=== PATIENT | female | born 1970 | race Caucasian/White ===

== ENCOUNTER 2024-05-14 15:41 | Outpatient (AMB) | payer OTHER, SELFPAY ==
--- NOTE | 2024-05-14 15:51 | MHC.PC.OV ---
Vital Signs 05/14/24 16:00 Height 5 ft 7 in Weight 201 lb BMI 31.5 BP 110/66 Blood Pressure Location Lt brachial Position Sitting Respiration 16 Pulse 81 Pulse Source Pulse Oximeter Temp 98.3 F Temp Source Oral Pulse Oximetry (%) 100 Oxygen Delivery Method Room Air Intake Visit Reasons: EstablishCareNP (get ins) Intake Note: [facility] Is last menstrual period known: No Post menopausal: Yes Patient : No Allergies No Known Allergies Allergy (Verified 05/14/24 15:51) Tobacco use date assessed: 05/14/24 Dental Screening Dental Screen Date: 05/14/24 Did you have a dental visit in the last 12 months?: Yes Did you have a dental problem in the last 6 months where you did not have access to dental care?: Yes HPI HPI Comments History of Present Illness Details The patient is a 53-year-old female presenting to [facility]. She transferred from [facility]. Records have not been transferred yet. She reports experiencing anxiety that can affect her sleep and appetite. She has a lot of healthcare anxiety. She says this has been going on for many years. Stress seems to exacerbate her anxiety, and she finds crafting and playing games helpful. She inquires about medication options for her anxiety but expresses a preference to start with therapy. She tried Zoloft in the past, but she has concerns about weight gain with this medication. She has concerns about her ears. She has had wax buildup in the past. She has intermittent lightheadedness that started late March after using a drying aid in both ears. She does not experience ear pain but noticed earwax upon scratching. She tried to use a home removal ear wax kit in the shower, but it made her more dizzy. No hearing loss, fevers, chills, headaches, chest pain or shortness of breath. 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 She carries a heavy backpack at work, throwing it over her right shoulder daily, contributing to shoulder and back stress. She does physical [facility] for [facility] lower back at [facility] The pain commenced around winter break, without a specific injury, and she suspects her work activities may play a role. She denies numbness, tingling, weakness in her extremities or loss of bowel or bladder control. Patient was informed and verbally consented to the use of an ambient scribe for clinic note documentation during this visit. ROS: - Psychological: Reports anxiety impacting sleep. - Neurological: Denies seizures, tremors, blackouts, headaches. - Eyes/Ears/Nose/Throat: See HPI - Musculoskeletal: See HPI - General: Denies recent weight loss or appetite changes not related to anxiety. No fevers or chills. PE: Constitutional: Alert, in no distress. Ear, Nose and Throat: Right ear canal blocked with dry wax. Left canal partially occluded by dry wax. Left tympanic membrane partially visualized in his [place] and pearly. Right tympanic membrane not able to be visualized. Normal nasal mucosa. No nasal discharge. No oral lesions. Neck: Supple, Full range of motion. No lymphadenopathy. Respiratory: Clear to auscultation. Cardiovascular: S1 S2 regular. No murmurs. Neurologic: No focal neurological deficits. Moves all extremities spontaneously. Sensation intact bilaterally. Musculoskeletal: Right upper arm and shoulder painful with empty can test and abduction. No erythema, redness or warmth. No joint crepitus. No gross deformities. Normal range of motion otherwise. Extremities: Warm and well perfused. No clubbing, cyanosis or edema. 3+ peripheral pulses bilaterally. Psychiatric: Normal mood and affect [facility] Medical History (Updated 05/14/24 @ 17:07 by NADIYA Cohen) Chronic lower back pain Right shoulder pain Anxiety Back problem Acid reflux Hiatal hernia Surgical History (Updated 05/14/24 @ 15:58 by Jaison Saucedo CMA) S/P removal of right ovary H/O removal of cyst H/O tooth extraction Family History (Updated 05/14/24 @ 15:59 by Jaison Saucedo CMA) Maternal Grandmother Diabetes Social History Housing: Condominium Patient Tobacco Use Status: Never used Tobacco e-Cigarette/Vaping Use: Never Used Second Hand Smoke Exposure: No service: No Current occupational status: employed 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 1. Little interest or pleasure in doing things: not at all 2. Feeling down, depressed, or hopeless: not at all 3. Trouble falling or staying asleep, or sleeping too much: not at all 4. Feeling tired or having little energy: not at all 5. Poor appetite or overeating: not at all 6. Feeling bad about yourself - or that you are a failure or have let yourself or your family down: not at all 7. Trouble concentrating on things, such as reading the newspaper or watching television: not at all 8. Moving or speaking so slowly that other people could have noticed. Or the opposite - being so fidgety or restless that you have been moving around a lot more than usual: not at all 9. Thoughts that you would be better off or of hurting yourself in some way: not at all Total score: 0 Source: Developed by Drs. Uche Faulkner, Rebekah Ortiz, Ney Wells and colleagues, with an educational rocky from [employer]. Thrive Questionnaire Date Thrive assessed: 05/14/24 I am a: Patient What is your living situation today?: I have a steady place to live Within the past 12 months, did the food you bought not last and you didn't have the money to get more?: Never true Within the past 12 months, did you worry whether your food would run out before you got money to buy more?: Never true Do you have trouble paying for medicines?: No Do you have trouble getting transportation to medical appointments?: No Do you have trouble paying your heating and electricity bill?: No Do you have trouble taking care of your child, family member or friend?: No Do you have trouble with day-to-day activities such as bathing, preparing meals, shopping, managing finances, etc.?: No Are you currently unemployed and looking for a job?: No Are you interested in more education?: No Please select the resources that you would like help with: None Currently or been in a relationship where the following occur: No concerns reported THRIVE Score: 0 AUDIT C Alcohol Use Questionnaire (AUDIT-C) 1. How often do you have a drink containing alcohol?: Never Total Score: 0 HIEN-7 AMB Questionnaire HIEN-7 Date HIEN - 7 assessed: 05/14/24 Feeling nervous, anxious, or on edge: 1 = Several days Not being able to stop or control worryin = Nearly every day Worrying too much about different things: 3 = Nearly every day Trouble relaxin = Several days Being so restless that it is hard to sit still: 0 = Not at all Becoming easily annoyed or irritable: 3 = Nearly every day Feeling afraid as if something awful might happen: 3 = Nearly every day Total HIEN-7 score (0-4 normal; 5-9 mild; 10-14 moderate; 15-21 severe): 14 Source: Developed by Drs. Uche Faulkner, Rebekah Ortiz, Ney Wells and colleagues, with an educational rocky from [employer]. Physical exam (Primary Care) Vital Signs: Last Vital Signs Temp 98.3 F 05/14/24 16:00 Pulse 81 05/14/24 16:00 Resp 16 05/14/24 16:00 BP 110/66 05/14/24 16:00 Pulse Ox 100 05/14/24 16:00 Oxygen Delivery Method Room Air 05/14/24 16:00 BMI result Body Mass Index 31.5 Tobacco/Smoking Status: Tobacco use Status Tobacco use date assessed 05/14/24 05/14/24 16:02 Patient Tobacco Use Status Never used Tobacco 05/14/24 16:02 e-Cigarette/Vaping Use Never Used 05/14/24 16:02 PHQ-9: PHQ-9 Score PHQ-9: Total score 0 05/14/24 16:15 Thrive Assessment: Date of Thrive Assessment Date Thrive assessed 05/14/24 05/14/24 16:02 Currently or been in a relationship where the following occur: No concerns reported Coding Level of Care Code New Pt Level 4 (68620) Complex EM visit Add On G2211 Diagnoses Anxiety F41.9 Right shoulder pain M25.511 Chronic lower back pain M54.50; G89.29 Assessment & Plan Assessment & Plan (1) Anxiety: Code(s): F41.9 - Anxiety disorder, unspecified Category: Medical (2) Right shoulder pain: Code(s): M25.511 - Pain in right shoulder Category: Medical (3) Chronic lower back pain: Code(s): M54.50 - Low back pain, unspecified; G89.29 - Other chronic pain Category: Medical Plan 1. Generalized Anxiety Disorder: The patient is advised to start psychotherapy. Referral placed. We discussed medication and potentially starting fluoxetine. She declined at this time but we will revisit this when she starts therapy. 2. Impacted Cerumen: Debrox as directed to soften earwax, followed by a nurse visit in five days for ear lavage. 3. Right Shoulder Pain: Suggests subacute rotator cuff tendinopathy. Referral for physical therapy is provided to improve strength and range of motion. Consider imaging and orthopedic referral if symptoms persist at next appointment. 4. Back Pain: Physical therapy for existing treatment plan extended; reassess in follow-up to gauge improvement and adjust as needed. Follow up in 8 weeks for a physical exam and recheck on anxiety and shoulder pain. Orders: Orders PT Evaluation and Treatment Today M25.511 - Pain in right shoulder, M54.50 - Low back pain, unspecified Referrals Psychology Referral F41.9 - Anxiety disorder, unspecified
[2024-05-14 16:00] VITALS: BP 110/66; PULSE 81; RESP 16; TEMP 36.8; O2SAT 100; BMI 31.5
== END 2024-05-14 16:40 | disposition home or self-care (01) ==
PROVIDERS: PCP Physician Assistant Medical; Visit Provider Physician Assistant Medical
DX: F41.9 Anxiety disorder, unspecified (principal); M25.511 Pain in right shoulder; M54.50 Low back pain, unspecified; G89.29 Other chronic pain

== ENCOUNTER → 2024-05-19 15:22 | Outpatient (BNVA) | payer OTHER, SELFPAY | PROVIDERS: PCP Physician Assistant Medical; Visit Provider Physician Assistant Medical | DX: Z01.89 Encounter for other specified special examinations (principal) | CPT/HCPCS: 99211 ==

== ENCOUNTER 2024-10-29 10:27 | Outpatient (AMB) | payer OTHER, SELFPAY ==
--- NOTE | 2024-10-29 10:32 | MHC.PC.OV ---
Vital Signs 10/29/24 10:37 Height 5 ft 7 in Weight 191 lb 4 oz BMI 30.0 BP 124/68 Blood Pressure Location Lt brachial Position Sitting Respiration 15 Pulse 85 Pulse Source Pulse Oximeter Temp 97.3 F Temp Source Temporal Artery Scan Pulse Oximetry (%) 98 Oxygen Delivery Method Room Air Intake Visit Reasons: Annual PE Intake Note: Paty presents in the office today for her annual physical. Allergies No Known Allergies Allergy (Verified 10/29/24 10:35) Tobacco use date assessed: 10/29/24 Dental Screening Dental Screen Date: 10/29/24 Did you have a dental visit in the last 12 months?: Yes Did you have a dental problem in the last 6 months where you did not have access to dental care?: No Was dental information given to patient?: Patient has dentist HPI HPI Comments History of Present Illness Details The patient is a 53-year-old female presenting for a physical exam. Anxiety-seeing a therapist. This is going well. Cologuard ordered. Last result was from October 2021. She is due for a mammogram. She declined against medical advice. She is going to have it done, but she did not want me to have the order placed today. She is up-to-date with her annual gynecologic exam. Reviewed prior medical records after the visit. There was no immunization record provided, and she is not sure when she last had a tetanus immunization so she will be contacted to get this done. I also recommended the shingles vaccine and pneumonia vaccine. ROS: Constitutional: No unexplained weight loss, fever, chills, fatigue or night sweats. Eyes: No vision changes, blurry vision, double vision, eye pain, eye redness, eye discharge. ENT: No hearing loss, sneezing, congestion, runny nose or sore throat. Respiratory: No shortness of breath, cough or sputum production. Cardiovascular: No chest pain, chest pressure or chest discomfort. No palpitations or pedal edema. Gastrointestinal: No anorexia, nausea, vomiting or diarrhea. No abdominal pain or blood in stool. Genitourinary: No dysuria, hematuria, urinary frequency. Neurologic: No headache, dizziness, syncope, unilateral weakness, ataxia, numbness or tingling in the extremities. Musculoskeletal: No muscle pain, back pain, joint pain or swelling. Hematologic/Lymphatics: No bleeding or bruising. No painful lymph nodes. Skin: No rash Endocrine: No cold or heat intolerance. No polyuria or polydipsia. Psychiatric: No depression.. No SI/HI. Physical exam: Constitutional: Alert, in no distress. Head: Normocephalic. Eyes: Pupils are equal, round and reactive to light. Extraocular muscles intact. Ear, Nose and Throat: Canals clear. TMs normal. Normal nasal mucosa. No nasal discharge. No oral lesions. Neck: Supple, Full range of motion. No lymphadenopathy. No palpable thyroid masses. Respiratory: Clear to auscultation. Cardiovascular: S1 S2 regular. No murmurs. No carotid bruits. Gastrointestinal: Abdomen soft, non-tender, non-distended. Normal bowel sounds. No palpable masses. Neurologic: No focal neurological deficits. Symmetric patellar reflexes. Moves all extremities spontaneously. Sensation intact bilaterally. Skin: No rashes or lesions. Musculoskeletal: No gross deformities. Normal range of motion. Extremities: Warm and well perfused. No clubbing, cyanosis or edema. Psychiatric: Normal mood and affect [facility] Medical History (Updated 10/29/24 @ 11:02 by NADIYA Cohen) Amenorrhea Routine physical examination Screening for cardiovascular condition Chronic lower back pain Right shoulder pain Anxiety Back problem Acid reflux Hiatal hernia Surgical History (Updated 05/14/24 @ 15:58 by Jaison Saucedo [facility]) S/P removal of right ovary H/O removal of cyst H/O tooth extraction Family History Maternal Grandmother Diabetes Social History (Updated 10/29/24 @ 10:37 by Diana Ayoub MA) Housing: Condominium Alcohol intake: never Patient Tobacco Use Status: Never used Tobacco e-Cigarette/Vaping Use: Never Used Second Hand Smoke Exposure: No service: No Current occupational status: employed 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 Current occupational exposures/hazards: Yes Cognitive needs: No Hearing needs: No Vision needs: Yes Questionnaire Thrive Questionnaire Date Thrive assessed: 05/14/24 I am a: Patient What is your living situation today?: I have a steady place to live Within the past 12 months, did the food you bought not last and you didn't have the money to get more?: Never true Within the past 12 months, did you worry whether your food would run out before you got money to buy more?: Never true Do you have trouble paying for medicines?: No Do you have trouble getting transportation to medical appointments?: No Do you have trouble paying your heating and electricity bill?: No Do you have trouble taking care of your child, family member or friend?: No Do you have trouble with day-to-day activities such as bathing, preparing meals, shopping, managing finances, etc.?: No Are you currently unemployed and looking for a job?: No Are you interested in more education?: No Please select the resources that you would like help with: None Currently or been in a relationship where the following occur: No concerns reported THRIVE Score: 0 HIEN-7 AMB Questionnaire HIEN-7 Date HIEN - 7 assessed: 05/14/24 Source: Developed by Drs. Uche Faulkner, Rebekah Ortiz, Ney Wells and colleagues, with an educational rocky from [employer]. Physical exam (Primary Care) Vital Signs: Last Vital Signs Temp 97.3 F 10/29/24 10:37 Pulse 85 10/29/24 10:37 Resp 15 10/29/24 10:37 BP 124/68 10/29/24 10:37 Pulse Ox 98 10/29/24 10:37 Oxygen Delivery Method Room Air 10/29/24 10:37 BMI result Body Mass Index 30.0 Tobacco/Smoking Status: Tobacco use Status Tobacco use date assessed 10/29/24 10/29/24 10:40 Patient Tobacco Use Status Never used Tobacco 10/29/24 10:37 e-Cigarette/Vaping Use Never Used 10/29/24 10:37 Thrive Assessment: Date of Thrive Assessment Date Thrive assessed 05/14/24 10/29/24 10:33 Currently or been in a relationship where the following occur: No concerns reported Coding Level of Care Code Est Pt Prev Care 40-64y(79829) Diagnoses Routine physical examination Z00.00 Assessment & Plan Assessment & Plan (1) Routine physical examination: Code(s): Z00.00 - Encounter for general adult medical examination without abnormal findings Category: Medical Plan Patient is seen today for a routine physical. 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 Follow up in 1 year for a physical exam. Orders: Orders Lipid Panel 10/29/24 E78.5 - Hyperlipidemia, unspecified, F41.9 - Anxiety disorder, unspecified, N91.2 - Amenorrhea, unspecified, Z00.00 - Encounter for general adult medical examination without abnormal findings, Z13.6 - Encounter for screening for cardiovascular disorders Comprehensive Met. Panel 10/29/24 F41.9 - Anxiety disorder, unspecified, N91.2 - Amenorrhea, unspecified, Z00.00 - Encounter for general adult medical examination without abnormal findings, Z13.6 - Encounter for screening for cardiovascular disorders Complete Blood Count no Diff 10/29/24 F41.9 - Anxiety disorder, unspecified, N91.2 - Amenorrhea, unspecified, Z00.00 - Encounter for general adult medical examination without abnormal findings, Z13.6 - Encounter for screening for cardiovascular disorders TSH reflex Free T4 10/29/24 F41.9 - Anxiety disorder, unspecified, N91.2 - Amenorrhea, unspecified, Z00.00 - Encounter for general adult medical examination without abnormal findings, Z13.6 - Encounter for screening for cardiovascular disorders Follicle Stimulating Hormone 10/29/24 F41.9 - Anxiety disorder, unspecified, N91.2 - Amenorrhea, unspecified, Z00.00 - Encounter for general adult medical examination without abnormal findings, Z13.6 - Encounter for screening for cardiovascular disorders Estrogen 10/29/24 F41.9 - Anxiety disorder, unspecified, N91.2 - Amenorrhea, unspecified, Z00.00 - Encounter for general adult medical examination without abnormal findings, Z13.6 - Encounter for screening for cardiovascular disorders Lutenizing Hormone 10/29/24 F41.9 - Anxiety disorder, unspecified, N91.2 - Amenorrhea, unspecified, Z00.00 - Encounter for general adult medical examination without abnormal findings, Z13.6 - Encounter for screening for cardiovascular disorders Cortisol Random 10/29/24 F41.9 - Anxiety disorder, unspecified Referrals Cologuard Test Z12.11 - Encounter for screening for malignant neoplasm of colon
[2024-10-29 10:37] VITALS: BP 124/68; PULSE 85; RESP 15; TEMP 36.3; O2SAT 98
--- OUTSIDE RECORDS SUMMARY | 2024-10-29 11:08 | XMS_ITS | Patient Health Record ---
Author Organization [employer] [facility] Address [address] [place] [address] Care Team Providers Care Engine Dispatcher Name Role Phone Irene Henriquez Unavailable [phone] Allergies No Known Allergies Reason For Referral No Information Problems Problem Type SNOMED Code ICD Code Onset Dates Problem Status W/U Status Risk Notes Problem Uncomplicated asthma (disorder) (575755894) Unspecified asthma, uncomplicated (J45.909) Active confirmed Problem Endometriosis (897073751) Endometriosis, unspecified (N80.9) Active confirmed Plan Of Treatment Pending Test Test Name Order Date ANTI-HEPATITIS C 11/09/2020 HEP. B SURF. AG 11/09/2020 SYPHILIS TESTING 11/09/2020 HIV AB-AG 4TH GENERATION 11/09/2020 MM Diag Digital Left/Left Breast U/S Insurance Providers Payer Name Payer Address Payer Phone Subscriber Number Group Number Insured Name Patient Relationship to Insured Coverage Start Date Coverage End Date [facility] [employer] [address] [place], [place] [id number] LIDIA DALTON Spouse - patient is the spouse of the insured Medical (General) History Medical History History ICD Code Unspecified asthma, uncomplicated J45.90 9 Surgical History Surgery Date(Month/Year) C/Section 2005 laparoscopic resection of endometriotic implant 2006 laparoscopic resection of en dometriotic implant, R oophorectomy, bilateral salpingectomy 2015 Hospitalization History Reason Date(Month/Year) 1 C/S See Surgical History
== END 2024-10-29 11:23 | disposition home or self-care (01) ==
LOC: HO.HMCFM 10:27
PROVIDERS: PCP Physician Assistant Medical; Visit Provider Physician Assistant Medical
DX: Z00.00 Encounter for general adult medical examination without abnormal findings (principal)